=== PATIENT | male | born 1990 | race African-American/Black ===

== ENCOUNTER 2022-07-21 20:47 | Emergency (ER) | payer MEDICAID, OTHER ==
[~2022-07-21] VITALS: Ht 167.6 cm; Wt 65.8 kg
--- NOTE | 2022-07-21 20:55 | NUR ---
[id number] FROM [facility] FOR SEIZURE , UNSURE ABOUT HX OF, LASTED 25 SEC NO POST ICTAL. PLACED ON BED, AAOX4, BREATHING EVEN AND UNLABORED SATURATING AT 98%RA.
--- NOTE | 2022-07-21 21:58 | NUR ---
BLOOD DRAWN AND URINE SAMPLE SENT TO LAB
[2022-07-21 22:41] LABS: BASOPHILS # (AUTO) 0.1 K/uL (0.0-0.2); BASOPHILS % (AUTO) 0.7 % (0.0-2.0); EOSINOPHILS % (AUTO) 3.4 % (0.0-6.0); HEMATOCRIT 45 % (39-51); HEMOGLOBIN 14.7 g/dL (13.5-17.5); LYMPHOCYTES # (AUTO) 3.7 K/uL (0.8-4.8); MEAN CORPUSCULAR HGB CONC 33 g/dl (31.0-36.0); MEAN CORPUSCULAR VOLUME 90 fL (80-96); MONOCYTES # (AUTO) 0.9 K/uL (0.1-1.30); NEUTROPHILS # (AUTO) 4.2 K/uL (1.8-8.9); NEUTROPHILS % (AUTO) 45.9 % (43.0-81.0); PLATELET COUNT (AUTO) 397 K/uL (150-450); WHITE BLOOD COUNT (AUTO) 9.2 K/uL (4.3-11.0)
[2022-07-21 23:04] LABS: CALCIUM, SERUM 8.8 mg/dL (8.5-10.1); CREATININE 0.9 mg/dL (0.6-1.3); POTASSIUM 4.5 mmol/L (3.5-5.1)
[2022-07-21 23:10] LABS: ALBUMIN 3.8 g/dL (3.4-5.0); BILIRUBIN,DIRECT 0.1 mg/dL (0.0-0.2); BILIRUBIN,TOTAL 0.2 mg/dL (0.2-1.0); TOTAL PROTEIN, SERUM 7.8 g/dL (6.4-8.2)
[2022-07-21] MEDS ORDERED: LEVE500T9 PO (23:54)
--- NOTE | 2022-07-22 00:16 | NUR ---
CAME BACK FROM CT DEPT
--- NOTE | 2022-07-22 06:45 | NUR ---
FAXED CLINICALS TO [facility]TA[facility]. PER JUSTIN SPOOLER OPERATOR AUTOMATIC, PATIENT'S BED IS ON HOLD
--- NOTE | 2022-07-22 12:18 | NUR ---
PT ACCEPTED TO [facility] UND[address]. FLYNN ETA 1300 CALL [phone] FOR REPORT.
--- NOTE | 2022-07-22 12:45 | NUR ---
PATIENT PICKUP BY [facility] STAFF FOR [facility]ELIN IN A STABLE CONDITION CALM- COOPERATIVE.
[2022-07-22 13:04] VITALS: BP 120/75
== END 2022-07-22 12:45 ==
LOC: ER 20:49
DX: G40.909 Epilepsy, unspecified, not intractable, without status epilepticus (principal); R94.8 Abnormal results of function studies of other organs and systems; Z59.01 Sheltered homelessness; Z20.822 Contact with and (suspected) exposure to COVID-19
CPT/HCPCS: 99284; 85025; 80048; 80076; 36415; 80307; 70450; 87426; 70480; C9803

== ENCOUNTER 2022-08-05 17:41 | Emergency (ER) | payer MEDICAID ==
[~2022-08-05] VITALS: Ht 167.6 cm; Wt 65.8 kg
[~2022-08-05 17:41] MED LIST: LEVE500T9 PO
--- NOTE | 2022-08-05 19:24 | NUR ---
URINE BLOOD AND COVID COLLECTED
--- NOTE | 2022-08-05 19:36 | NUR ---
SECURITY AT BEDSIDE
--- NOTE | 2022-08-05 19:45 | NUR ---
ARYA HARDEN C/O VOL PSYCH ADMIT. PT IS A/O X 4, RR EVEB AND UNLABORED NO SOB NOTED, PT IS AFEBRILE. TAKEN TO ER BED 18 , WILL CONTINUE TO MONITOR.
[2022-08-05 19:47] LABS: BILIRUBIN,URINE NEGATIVE (NEGATIVE); COLOR,URINE YELLOW (YELLOW); LEUKOCYTE ESTERASE ,URINE NEGATIVE (NEGATIVE); NITRITE, URINE NEGATIVE (NEGATIVE); PH,URINE 6.5 (5.0-8.0); PROTEIN,URINE NEGATIVE (NEGATIVE); UGLUCOSE NEGATIVE (NEGATIVE); UROBILINOGEN,URINE 0.2 EU/dL (0.2)
[2022-08-05 19:54] LABS: BASOPHILS # (AUTO) 0.1 K/uL (0.0-0.2); BASOPHILS % (AUTO) 1.1 % (0.0-2.0); EOSINOPHILS % (AUTO) 4.5 % (0.0-6.0); HEMATOCRIT 44 % (39-51); HEMOGLOBIN 14.6 g/dL (13.5-17.5); LYMPHOCYTES # (AUTO) 2.9 K/uL (0.8-4.8); LYMPHOCYTES % (AUTO) 40.2 % (20.0-44.0); MEAN CORPUSCULAR HGB CONC 33 g/dl (31.0-36.0); MEAN CORPUSCULAR VOLUME 89 fL (80-96); MONOCYTES # (AUTO) 0.6 K/uL (0.1-1.30); MONOCYTES % (AUTO) 8.9 % (2.0-12.0); NEUTROPHILS # (AUTO) 3.3 K/uL (1.8-8.9); NEUTROPHILS % (AUTO) 45.3 % (43.0-81.0); PLATELET COUNT (AUTO) 305 K/uL (150-450); RED BLOOD CELL COUNT(AUTO) 4.96 MIL/uL (4.5-6.0); WHITE BLOOD COUNT (AUTO) 7.3 K/uL (4.3-11.0)
[2022-08-05 20:00] VITALS: BP 134/77
[2022-08-05 20:21] LABS: CALCIUM, SERUM 8.9 mg/dL (8.5-10.1); CARBON DIOXIDE 28 mmol/L (21-32); CHLORIDE 101 mmol/L (98-107); CREATININE 0.8 mg/dL (0.6-1.3); GLUCOSE 83 mg/dL (74-106); POTASSIUM 3.9 mmol/L (3.5-5.1); SODIUM SERUM 136 mmol/L (136-145); UREA NITROGEN, BLOOD 14 mg/dL (7-18)
[2022-08-05 22:31] LABS: ALBUMIN 3.7 g/dL (3.4-5.0); ALKALINE PHOSPHATASE 115 U/L (46-116); ASPARTATE AMINOTRANSFERASE 37 U/L (15-37); BILIRUBIN,DIRECT 0.1 mg/dL (0.0-0.2); BILIRUBIN,TOTAL 0.3 mg/dL (0.2-1.0); TOTAL PROTEIN, SERUM 7.5 g/dL (6.4-8.2)
[2022-08-05 22:53] LABS: ACETAMINOPHEN < 10 ug/ml (10-30); ALCOHOL, BLOOD < 3 mg/dL (0-0)
--- NOTE | 2022-08-05 23:19 | NUR ---
FACESHEET AND CLINICALS FAXED TO [facility].
[2022-08-06 01:30] LABS: ALANINE AMINOTRANSFERASE 42 U/L (12-78)
--- NOTE | 2022-08-06 02:05 | NUR ---
PER RIMA AT [facility] INTAKE, PT NOT CONTRACTED WITH THEM.
--- NOTE | 2022-08-06 07:26 | NUR ---
PT ACCEPTED TO [facility] [address] [address] FLYNN NUMBER FOR REPORT [phone] TRANSPORTATION WILL BE HERE AT 0800
--- NOTE | 2022-08-06 08:24 | NUR ---
ATTEMPTED TO GIVE REPORT, WENT TO [employer], MAILBOX FULL, UNABLE TO GIVE REPORT.
== END 2022-08-06 09:51 ==
LOC: ER 17:43
DX: R45.851 Suicidal ideations (principal); Z20.822 Contact with and (suspected) exposure to COVID-19
CPT/HCPCS: 99285; 85025; 80048; 80076; 81003; 36415; 87426; 80143; 80320; 80307; C9803; G0480

== ENCOUNTER 2022-09-05 08:01 | Emergency (ER) | payer MEDICAID ==
[~2022-09-05] VITALS: Ht 167.6 cm; Wt 65.8 kg
--- NOTE | 2022-09-05 08:12 | NUR ---
CALLED TO TRIAGE, NOT READY, IN THE BATHROOM
[2022-09-05 08:52] VITALS: BP 118/76
--- NOTE | 2022-09-05 10:59 | NUR ---
Patient left without being seen by ER Physician. Pt not in waiting room nor within the hospital vicinity.
== END 2022-09-05 12:29 | disposition left against medical advice (07) ==
LOC: ER 08:07
DX: R45.851 Suicidal ideations (principal); Z60.2 Problems related to living alone

== ENCOUNTER 2023-01-20 08:39 | Emergency (ER) | payer MEDICAID, OTHER ==
[~2023-01-20] VITALS: Ht 165.1 cm; Wt 64.9 kg
--- NOTE | 2023-01-20 08:55 | NUR ---
PT WALKED INTO ER REQUESTING VOLUNTARY PSYCH ADMISSION TO [facility]. SI PLAN: "OD ON DRUGS". PT AMBULATED TO ROOM WITH STEADY GAIT, BREATHING EVEN AND UNLABORED.
--- NOTE | 2023-01-20 08:56 | NUR ---
SECURITY IS WITH THE PATIENT FOR WANDING AND BELONGINGS ISOLATION.
[2023-01-20 09:00] VITALS: BP 112/56
--- NOTE | 2023-01-20 09:00 | NUR ---
PT IS UNABLE TO GIVE URINE AT THIS TIME. PT STATES " I WILL TRY AGAIN IN A FEW MINUTES"
--- NOTE | 2023-01-20 09:05 | NUR ---
COVID SWAB COLLECTED AND SENT TO LAB
[2023-01-20 09:56] LABS: BASOPHILS # (AUTO) 0.1 K/uL (0.0-0.2); BASOPHILS % (AUTO) 2.9 % (0.0-2.0); EOSINOPHILS % (AUTO) 9.3 % (0.0-6.0); HEMATOCRIT 49 % (39-51); HEMOGLOBIN 15.8 g/dL (13.5-17.5); LYMPHOCYTES # (AUTO) 1.2 K/uL (0.8-4.8); LYMPHOCYTES % (AUTO) 28.3 % (20.0-44.0); MEAN CORPUSCULAR HGB CONC 32 g/dl (31.0-36.0); MEAN CORPUSCULAR VOLUME 92 fL (80-96); MONOCYTES # (AUTO) 0.4 K/uL (0.1-1.30); MONOCYTES % (AUTO) 9.3 % (2.0-12.0); NEUTROPHILS # (AUTO) 2.1 K/uL (1.8-8.9); NEUTROPHILS % (AUTO) 50.2 % (43.0-81.0); PLATELET COUNT (AUTO) 253 K/uL (150-450); RED BLOOD CELL COUNT(AUTO) 5.34 MIL/uL (4.5-6.0); WHITE BLOOD COUNT (AUTO) 4.2 K/uL (4.3-11.0)
[2023-01-20 10:16] LABS: CALCIUM, SERUM 9.2 mg/dL (8.5-10.1); CARBON DIOXIDE 29 mmol/L (21-32); CHLORIDE 105 mmol/L (98-107); GLUCOSE 95 mg/dL (74-106); POTASSIUM 4.2 mmol/L (3.5-5.1); SODIUM SERUM 139 mmol/L (136-145); UREA NITROGEN, BLOOD 14 mg/dL (7-18)
[2023-01-20 10:23] LABS: ALANINE AMINOTRANSFERASE 38 U/L (12-78); ALBUMIN 3.9 g/dL (3.4-5.0); ALKALINE PHOSPHATASE 108 U/L (46-116); ASPARTATE AMINOTRANSFERASE 26 U/L (15-37); BILIRUBIN,DIRECT 0.1 mg/dL (0.0-0.2); BILIRUBIN,TOTAL 0.4 mg/dL (0.2-1.0); TOTAL PROTEIN, SERUM 7.3 g/dL (6.4-8.2)
[2023-01-20 10:45] LABS: ALCOHOL, BLOOD < 3 mg/dL (0-0)
--- NOTE | 2023-01-20 10:54 | NUR ---
urine specimen collected, sent to lab.
[2023-01-20 11:23] LABS: BILIRUBIN,URINE NEGATIVE (NEGATIVE); COLOR,URINE YELLOW (YELLOW); LEUKOCYTE ESTERASE ,URINE 1+ (NEGATIVE); NITRITE, URINE NEGATIVE (NEGATIVE); PH,URINE 6.5 (5.0-8.0); PROTEIN,URINE NEGATIVE (NEGATIVE); UGLUCOSE NEGATIVE (NEGATIVE)
[2023-01-20 11:44] LABS: BACTERIA,URINE Few /HPF (None Seen); RBC,URINE 0-2 /HPF (0-2); SQUAMOUS EPITHELIAL CELL,UR Rare /HPF (None Seen); WBC,URINE 20-25 /HPF (0-3)
--- NOTE | 2023-01-20 14:14 | NUR ---
MARELY CALLED, PT ACCEPTED TO [facility] UND[address] DR. MAIER. PLEASE CALL [phone] FOR REPORT TO ELISSA. REFRIGERATION REPAIR SUPERVISOR ETA 1530.
--- NOTE | 2023-01-20 16:00 | NUR ---
[facility].
== END 2023-01-20 17:21 ==
LOC: ER 08:43
DX: R45.851 Suicidal ideations (principal); Z20.822 Contact with and (suspected) exposure to COVID-19; Z59.00 Homelessness unspecified
CPT/HCPCS: 99285; 85025; 80048; 87086; 80076; 81001; 36415; 87426; 80143; 80320; 80307; C9803; G0480

== ENCOUNTER 2024-05-30 18:44 | Emergency (ER) | payer MEDICAID, OTHER ==
[~2024-05-30] VITALS: Ht 167.6 cm; Wt 83.9 kg
[2024-05-30 20:49] LABS: BASOPHILS # (AUTO) 0.1 K/uL (0.0-0.2); BASOPHILS % (AUTO) 1.4 % (0.0-2.0); EOSINOPHILS # (AUTO) 0.2 K/uL (0.0-0.7); EOSINOPHILS % (AUTO) 2.2 % (0.0-6.0); HEMATOCRIT 45 % (39-51); HEMOGLOBIN 15.1 g/dL (13.5-17.5); LYMPHOCYTES # (AUTO) 1.9 K/uL (0.8-4.8); LYMPHOCYTES % (AUTO) 17.5 % (20.0-44.0); MEAN CORPUSCULAR HEMOGLOBIN 30 PG (26.0-33.0); MEAN CORPUSCULAR HGB CONC 34 g/dl (31.0-36.0); MEAN CORPUSCULAR VOLUME 89 fL (80-96); MONOCYTES # (AUTO) 1.2 K/uL (0.1-1.30); MONOCYTES % (AUTO) 11.2 % (2.0-12.0); NEUTROPHILS # (AUTO) 7.3 K/uL (1.8-8.9); NEUTROPHILS % (AUTO) 67.7 % (43.0-81.0); PLATELET COUNT (AUTO) 236 K/uL (150-450); RED BLOOD CELL COUNT(AUTO) 5.01 MIL/uL (4.5-6.0); RED CELL DISTRIBUTION WIDTH 13.4 % (11.5-15.0); WHITE BLOOD COUNT (AUTO) 10.7 K/uL (4.3-11.0)
[2024-05-30 21:09] LABS: ALANINE AMINOTRANSFERASE 25 U/L (12-78); ALCOHOL, BLOOD < 3 mg/dL (0-10); ALKALINE PHOSPHATASE 77 U/L (46-116); ASPARTATE AMINOTRANSFERASE 45 U/L (15-37); BILIRUBIN,DIRECT 0.3 mg/dL (0.0-0.2); BILIRUBIN,TOTAL 1.2 mg/dL (0.2-1.0); CALCIUM, SERUM 8.8 mg/dL (8.5-10.1); CARBON DIOXIDE 25 mmol/L (21-32); CHLORIDE 101 mmol/L (98-107); CREATININE 1.1 mg/dL (0.6-1.3); GLUCOSE 91 mg/dL (74-106); POTASSIUM 3.8 mmol/L (3.5-5.1); SALICYLATE 3.2 mg/dL (2.8-20.0); SODIUM SERUM 139 mmol/L (136-145); TOTAL PROTEIN, SERUM 7.7 g/dL (6.4-8.2); UREA NITROGEN, BLOOD 17 mg/dL (7-18)
[2024-05-30 21:26] LABS: ACETAMINOPHEN 0 ug/ml (10-30)
[2024-05-31 00:08] LABS: APPEARANCE,URINE CLEAR (CLEAR); BILIRUBIN,URINE 2+ (NEGATIVE); BLOOD, URINE NEGATIVE Ery/uL (NEGATIVE); COLOR,URINE DARK YELLOW (YELLOW); KETONES,URINE 3+ mg/dL (NEGATIVE); LEUKOCYTE ESTERASE ,URINE NEGATIVE (NEGATIVE); NITRITE, URINE NEGATIVE (NEGATIVE); PROTEIN,URINE 1+ mg/dl (NEGATIVE); UGLUCOSE NEGATIVE (NEGATIVE)
[2024-05-31 00:12] LABS: ADD URINE CULTURE NO; BACTERIA,URINE Rare /HPF (None Seen); SQUAMOUS EPITHELIAL CELL,UR Few /HPF (None Seen); WBC,URINE 0-2 /HPF (0-3)
[2024-05-31 00:24] LABS: AMPHETAMINE, URINE POSITIVE (NEGATIVE); BARBITURATE, URINE NEGATIVE (NEGATIVE); BENZODIAZEPINE, URINE NEGATIVE (NEGATIVE); COCCAINE, URINE NEGATIVE (NEGATIVE); OPIATE, URINE NEGATIVE (NEGATIVE); PHENCYCLIDINE SCREEN,URINE NEGATIVE (NEGATIVE)
[2024-05-31 00:38] LABS: CANNABINOID, URINE POSITIVE (NEGATIVE)
[2024-05-31 01:53] VITALS: BP 135/69; TEMP 98; O2SAT 98
== END 2024-05-31 01:54 ==
LOC: ER 18:48
DX: F32.A Depression, unspecified (principal); R44.0 Auditory hallucinations; G40.909 Epilepsy, unspecified, not intractable, without status epilepticus; Z20.822 Contact with and (suspected) exposure to COVID-19; Z79.899 Other long term (current) drug therapy; Z59.00 Homelessness unspecified
CPT/HCPCS: 36415; 80048-TC; 80076-TC; 81001; 85025-TC; G0480

== ENCOUNTER 2024-12-19 20:27 | Inpatient (IN) | payer MEDICAID ==
[~2024-12-19] VITALS: Ht 165.1 cm; Wt 62.1 kg
[~2024-12-19 20:27] MED LIST changes: +CEPH-570 PO; +DIVA500T54 PO; +GABA300C PO; +IBUP-1490 PO; -LEVE500T9 PO; +RISP2TAB85 PO; +SULF1TAB48 PO
[2024-12-19 22:38] LABS: BASOPHILS # (AUTO) 0.1 K/uL (0.0-0.2); BASOPHILS % (AUTO) 0.6 % (0.0-2.0); EOSINOPHILS # (AUTO) 0.3 K/uL (0.0-0.7); EOSINOPHILS % (AUTO) 2.2 % (0.0-6.0); HEMATOCRIT 38 % (39-51); HEMOGLOBIN 13.3 g/dL (13.5-17.5); LYMPHOCYTES # (AUTO) 1.8 K/uL (0.8-4.8); LYMPHOCYTES % (AUTO) 15.8 % (20.0-44.0); MEAN CORPUSCULAR HEMOGLOBIN 31 PG (26.0-33.0); MEAN CORPUSCULAR HGB CONC 35 g/dl (31.0-36.0); MEAN CORPUSCULAR VOLUME 89 fL (80-96); MONOCYTES % (AUTO) 8.7 % (2.0-12.0); NEUTROPHILS # (AUTO) 8.4 K/uL (1.8-8.9); NEUTROPHILS % (AUTO) 72.7 % (43.0-81.0); PLATELET COUNT (AUTO) 283 K/uL (150-450); RED CELL DISTRIBUTION WIDTH 14.4 % (11.5-15.0); WHITE BLOOD COUNT (AUTO) 11.6 K/uL (4.3-11.0)
[2024-12-19] MEDS ORDERED: VANCOMYCIN 1 GM /D5W 250 ML PB IV ONE (22:38)
[2024-12-19 22:48] LABS: CALCIUM, SERUM 8.9 mg/dL (8.5-10.1); CREATININE 0.8 mg/dL (0.6-1.3); POTASSIUM 3.5 mmol/L (3.5-5.1)
[2024-12-19 22:53] LABS: INR 0.97 (0.91-1.10); PARTIAL THROMBOPLASTIN TIME 28.2 SEC (24.3-34.3); PROTHROMBIN TIME 10.3 SECS (9.2-11.1)
[2024-12-19 22:55] LABS: LACTIC ACID 1.7 mmol/L (0.4-2.0)
[2024-12-19] MEDS: VANCOMYCIN 1 GM in IV D5W 250 ML IV ONE (23:00)
[2024-12-19] MEDS: IV NS 0.9% 500 ML BAG IV ONE (23:00)
[2024-12-19 23:02] LABS: BILIRUBIN,DIRECT 0.1 mg/dL (0.0-0.2); BILIRUBIN,TOTAL 0.4 mg/dL (0.2-1.0); TOTAL PROTEIN, SERUM 6.6 g/dL (6.4-8.2)
[2024-12-19] MEDS: IV NS 0.9% 1,000 ML BAG IV ONE (23:29)
[2024-12-20] MEDS ORDERED: ACETAMINOPHEN 325 MG TABLET PO PRN (01:00)
[2024-12-20] MEDS ORDERED: ONDANSETRON HCL/PF 4 MG/2 ML VIAL IVP PRN (01:00)
[2024-12-20] MEDS ORDERED: Z GUARD REMEDY 4 OZ OINT TP PRN (01:00)
[2024-12-20 01:14] VITALS: BP 108/64; TEMP 97.5; O2SAT 99
[2024-12-20] MEDS: IV NS 0.9% 500 ML IV ONE (01:50)
[2024-12-20] MEDS: HYDROCODONE/APAP 5/325MG TABLET PO PRN (02:28)
[2024-12-20] MEDS: IV NS 0.9% 1,000 ML IV ONE (02:40)
[2024-12-20 04:00] VITALS: BP 117/66; TEMP 97.7; O2SAT 100
[2024-12-20 08:00] VITALS: BP 118/76; TEMP 98.2; O2SAT 100
[2024-12-20] MEDS: PANTOPRAZOLE 40 MG TABLET.DR PO SCH (08:27)
[2024-12-20 09:16] LABS: CALCIUM, SERUM 8.6 mg/dL (8.5-10.1); CREATININE 0.5 mg/dL (0.6-1.3)
[2024-12-20] MEDS: NEOMY SULF/BACITRAC ZN/POLY 15 GM TUBE TP SCH (10:13)
[2024-12-20] MEDS: VANCOMYCIN 1 GM in IV D5W 250ml IV SCH (10:13)
[2024-12-20 10:54] LABS: BASOPHILS # (AUTO) 0.2 K/uL (0.0-0.2); BASOPHILS % (AUTO) 1.3 % (0.0-2.0); EOSINOPHILS # (AUTO) 0.4 K/uL (0.0-0.7); EOSINOPHILS % (AUTO) 3.3 % (0.0-6.0); HEMATOCRIT 42 % (39-51); HEMOGLOBIN 13.9 g/dL (13.5-17.5); LYMPHOCYTES % (AUTO) 16.8 % (20.0-44.0); MEAN CORPUSCULAR HEMOGLOBIN 30 PG (26.0-33.0); MEAN CORPUSCULAR HGB CONC 33 g/dl (31.0-36.0); MEAN CORPUSCULAR VOLUME 90 fL (80-96); MONOCYTES % (AUTO) 8.3 % (2.0-12.0); NEUTROPHILS # (AUTO) 8.6 K/uL (1.8-8.9); NEUTROPHILS % (AUTO) 70.3 % (43.0-81.0); PLATELET COUNT (AUTO) 292 K/uL (150-450); RED BLOOD CELL COUNT(AUTO) 4.64 MIL/uL (4.5-6.0); RED CELL DISTRIBUTION WIDTH 14.2 % (11.5-15.0); WHITE BLOOD COUNT (AUTO) 12.2 K/uL (4.3-11.0)
[2024-12-20 16:00] VITALS: BP 104/73; TEMP 97.7; O2SAT 100
[2024-12-20 20:00] VITALS: BP 113/72; TEMP 98.7; O2SAT 100
[2024-12-21 04:00] VITALS: BP 115/75; TEMP 98.5; O2SAT 100
[2024-12-21 08:00] VITALS: BP 119/72; TEMP 98.3; O2SAT 98
[2024-12-21 08:20] LABS: BASOPHILS % (AUTO) 0.4 % (0.0-2.0); EOSINOPHILS # (AUTO) 0.5 K/uL (0.0-0.7); EOSINOPHILS % (AUTO) 5.5 % (0.0-6.0); HEMATOCRIT 44 % (39-51); HEMOGLOBIN 14.8 g/dL (13.5-17.5); LYMPHOCYTES # (AUTO) 1.3 K/uL (0.8-4.8); LYMPHOCYTES % (AUTO) 15.5 % (20.0-44.0); MEAN CORPUSCULAR HEMOGLOBIN 30 PG (26.0-33.0); MEAN CORPUSCULAR HGB CONC 34 g/dl (31.0-36.0); MEAN CORPUSCULAR VOLUME 89 fL (80-96); MONOCYTES # (AUTO) 0.6 K/uL (0.1-1.30); NEUTROPHILS # (AUTO) 6.2 K/uL (1.8-8.9); NEUTROPHILS % (AUTO) 71.6 % (43.0-81.0); PLATELET COUNT (AUTO) 272 K/uL (150-450); RED CELL DISTRIBUTION WIDTH 14.3 % (11.5-15.0); WHITE BLOOD COUNT (AUTO) 8.6 K/uL (4.3-11.0)
[2024-12-21] MEDS ORDERED: IOHEXOL-300 100 ML VIAL IV ONE (10:32)
[2024-12-21] MEDS ORDERED: IV NS 0.9% 250 ML IV ONE (10:32)
[2024-12-21] MEDS ORDERED: CT SWABBABLE VALVE TRANS SET 1 EA INFUS.SET MC ONE (10:32)
[2024-12-21 15:19] LABS: CALCIUM, SERUM 8.8 mg/dL (8.5-10.1); CREATININE 0.8 mg/dL (0.6-1.3); MAGNESIUM 1.8 mg/dL (1.8-2.4); PHOSPHORUS 3.6 mg/dL (2.5-4.9); POTASSIUM 3.9 mmol/L (3.5-5.1)
[2024-12-21 16:00] VITALS: BP 111/66; TEMP 97.9; O2SAT 97
[2024-12-21 20:00] VITALS: BP 99/56; TEMP 98.4; O2SAT 99
[2024-12-22 04:00] VITALS: BP 105/67; TEMP 97.7; O2SAT 100
[2024-12-22 08:00] VITALS: BP 111/71; TEMP 98.2; O2SAT 99
[2024-12-22 08:08] LABS: BASOPHILS % (AUTO) 0.7 % (0.0-2.0); EOSINOPHILS # (AUTO) 0.4 K/uL (0.0-0.7); EOSINOPHILS % (AUTO) 5.4 % (0.0-6.0); HEMATOCRIT 51 % (39-51); HEMOGLOBIN 16.7 g/dL (13.5-17.5); LYMPHOCYTES # (AUTO) 1.5 K/uL (0.8-4.8); LYMPHOCYTES % (AUTO) 21.2 % (20.0-44.0); MEAN CORPUSCULAR HEMOGLOBIN 30 PG (26.0-33.0); MEAN CORPUSCULAR HGB CONC 33 g/dl (31.0-36.0); MEAN CORPUSCULAR VOLUME 91 fL (80-96); MONOCYTES # (AUTO) 0.5 K/uL (0.1-1.30); MONOCYTES % (AUTO) 6.7 % (2.0-12.0); NEUTROPHILS # (AUTO) 4.8 K/uL (1.8-8.9); PLATELET COUNT (AUTO) 283 K/uL (150-450); RED BLOOD CELL COUNT(AUTO) 5.61 MIL/uL (4.5-6.0); RED CELL DISTRIBUTION WIDTH 14.2 % (11.5-15.0); WHITE BLOOD COUNT (AUTO) 7.2 K/uL (4.3-11.0)
[2024-12-22 08:30] LABS: CALCIUM, SERUM 8.9 mg/dL (8.5-10.1); CREATININE 0.7 mg/dL (0.6-1.3); POTASSIUM 4.1 mmol/L (3.5-5.1)
[2024-12-22] MEDS ORDERED: SULF1TAB48 PO (13:03)
[2024-12-22 16:05] VITALS: BP 110/58; TEMP 98.4; O2SAT 100
== END 2024-12-22 18:37 | disposition home or self-care (01) | DRG 383 ==
LOC: ER 20:29 → MEDSG1 12-20 00:43
PROVIDERS: ADMIT Nurse Practitioner Acute Care; ATTEND Nurse Practitioner Family
PROC: 0JB90ZZ Excision of Buttock Subcutaneous Tissue and Fascia, Open Approach (ICD-10-PCS; principal; 2024-12-21)
DX: L02.31 Cutaneous abscess of buttock (principal); E44.1 Mild protein-calorie malnutrition; L03.317 Cellulitis of buttock; G40.909 Epilepsy, unspecified, not intractable, without status epilepticus; Z59.00 Homelessness unspecified; Z79.899 Other long term (current) drug therapy; E88.09 Other disorders of plasma-protein metabolism, not elsewhere classified; F17.200 Nicotine dependence, unspecified, uncomplicated; Z98.890 Other specified postprocedural states
CPT/HCPCS: 36415; 72193-TC; 80048-TC; 80076-TC; 80202-TC; 83605-TC; 83735-TC; 84100-TC; 85025-TC; 85730-TC; 87040-TC; 87081-TC; 98960; A4223; A6253; A6403; A6407; G0378; J3370; J7030; J7040; J7050; J7060; Q9967

== ENCOUNTER 2024-12-28 21:20 | Emergency (ER) | payer MEDICAID ==
[~2024-12-28] VITALS: Ht 167.6 cm; Wt 68.0 kg
[~2024-12-28 21:20] MED LIST changes: -CEPH-570 PO; -DIVA500T54 PO; -GABA300C PO; -IBUP-1490 PO; -RISP2TAB85 PO
[2024-12-28] MEDS ORDERED: CLINDAMYCIN HCL 150 MG CAPSULE ONE (22:22)
[2024-12-28] MEDS: CLINDAMYCIN HCL 150 MG CAPSULE PO ONE (22:25)
[2024-12-28 22:26] VITALS: BP 120/76; TEMP 98; O2SAT 98
[2024-12-28] MEDS ORDERED: AMOX-430 PO (22:32)
== END 2024-12-29 00:32 | disposition home or self-care (01) ==
LOC: ER 21:23
DX: S01.552A Open bite of oral cavity, initial encounter (principal); K14.6 Glossodynia; K13.1 Cheek and lip biting; G40.909 Epilepsy, unspecified, not intractable, without status epilepticus; Z59.00 Homelessness unspecified; X58.XXXA Exposure to other specified factors, initial encounter; Y93.89 Activity, other specified; Y92.89 Other specified places as the place of occurrence of the external cause; Y99.8 Other external cause status